=== PATIENT | female | born 1955 | race Caucasian/White ===

== ENCOUNTER → 2016-12-29 | Outpatient (CLI) | payer OTHER ==
[~2016-12-29] MED LIST: CETI10TA84 PO; CLOB-65 TD; FLUT0.0529 NAE; MONT1TAB5 PO; SERT25TA PO; THYR180T PO; WARF5TAB90 PO
[2016-12-29 10:05] LABS: CHOLESTEROL/HDL RATIO 3.5; THYROID STIMULATING HORMONE 1.18 uIu/ml (0.300-4.500)
== END | disposition home or self-care (01) ==
LOC: C.LAB1850 07:59
PROVIDERS: ATTEND Internal Medicine
DX: E78.5 Hyperlipidemia, unspecified (principal); E03.9 Hypothyroidism, unspecified

== ENCOUNTER → 2017-04-15 | Outpatient (CLI) | payer OTHER ==
--- NOTE | 2017-04-15 09:46 | DIAGNOSTIC IMAGING REPORT ---
LUMBAR SPINE W/O CONTRAST CLINICAL HISTORY: 62 years-old Female presenting with LUMBAR RADICULOPATHY. TECHNIQUE: Multisequence, multiplanar MR imaging of the lumbar spine was performed without the use of intravenous contrast. IV contrast: None. COMPARISON: Correlation made to CT of the abdomen and pelvis from 03/29/2015. FINDINGS: Vertebral body heights and alignment maintained. 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 A T1 hyperintense and T2 hyperintense focal round lesion is noted at T12 consistent with benign hemangioma. Intervertebral disc height loss with disc desiccation and disc bulges at several levels. Additional degenerative changes further detailed below: T12-L1: Normal. L1-2: Minimal disc bulge. No significant neural foraminal or spinal canal narrowing. L2-3: Mild disc bulge and ligamentum flavum thickening result in minimal effacement of the thecal sac and mild neural foraminal narrowing bilaterally. L3-4: Similar findings of mild disc bulge resulting in minimal effacement of the ventral thecal sac and mild bilateral neural foraminal narrowing. L4-5: Mild disc bulge bulge and facet arthropathy results in mild bilateral neural foraminal narrowing. L5-S1: Normal. Spinal cord remains in good position at the inferior endplate of T12. Cauda equina normal. Paraspinal soft tissues normal. IMPRESSION: Multilevel degenerative changes with mild bilateral neural foraminal narrowing from L2-3 to L4-5 further detailed above. No significant spinal canal narrowing. Electronically signed by: Everardo Lo M.D. 04/15/2017 9:45 AM Dictated Date/Time: 04/15/2017 9:38 AM
== END | disposition home or self-care (01) ==
LOC: C.MRIBC 08:29
PROVIDERS: ATTEND Pain Medicine Interventional Pain Medicine
DX: M51.16 Intervertebral disc disorders with radiculopathy, lumbar region (principal)

== ENCOUNTER → 2017-06-28 | Outpatient (CLI) | payer OTHER ==
[2017-06-28 10:13] LABS: ALT/SGPT 24 U/L (12-78); AST/SGOT 11 U/L (15-37); BLOOD UREA NITROGEN 12 mg/dl (7-18); BUN/CREATININE RATIO 22.1 (10-20); CALCIUM 8.5 mg/dl (8.5-10.1); CARBON DIOXIDE 28 mmol/L (21-32); CHLORIDE 108 mmol/L (98-107); CHOLESTEROL 203 mg/dl (0-200); CREATININE 0.56 mg/dl (0.60-1.20); GLUCOSE 101 mg/dl (70-99); POTASSIUM 4.2 mmol/L (3.5-5.1); SODIUM 141 mmol/L (136-145)
[2017-06-28 10:23] LABS: CHOLESTEROL/HDL RATIO 2.7; HDL CHOLESTEROL 75 mg/dl; LDL CHOLESTEROL CALCULATED 112 mg/dl; TRIGLYCERIDES 80 mg/dl (0-150); VERY LOW DENSITY LIPOPROT CALC 16 mg/dl
== END | disposition home or self-care (01) ==
LOC: C.LAB1850 08:20
PROVIDERS: ATTEND Internal Medicine
DX: E78.5 Hyperlipidemia, unspecified (principal); E03.9 Hypothyroidism, unspecified; M54.9 Dorsalgia, unspecified

== ENCOUNTER → 2017-09-22 | Outpatient (CLI) | payer OTHER ==
[2017-09-22 19:33] LABS: BLOOD UREA NITROGEN 18 mg/dl (7-18); CREATININE 0.72 mg/dl (0.60-1.20)
== END | disposition home or self-care (01) ==
LOC: C.LAB1850 15:46
PROVIDERS: ATTEND Internal Medicine
DX: M70.61 Trochanteric bursitis, right hip (principal); E06.3 Autoimmune thyroiditis

== ENCOUNTER → 2017-11-22 | Outpatient (CLI) | payer OTHER | END | disposition home or self-care (01) | LOC: C.LAB1850 12:30 | PROVIDERS: ATTEND Internal Medicine | DX: E06.3 Autoimmune thyroiditis (principal) ==

== ENCOUNTER → 2017-12-14 | Outpatient (CLI) | payer OTHER | END | disposition home or self-care (01) | LOC: C.LABSPEC 12:55 | PROVIDERS: ATTEND Physician Assistant | DX: N39.0 Urinary tract infection, site not specified (principal) ==

== ENCOUNTER → 2018-01-16 | Outpatient (CLI) | payer OTHER | END | disposition home or self-care (01) | LOC: C.LAB1850 14:21 | PROVIDERS: ATTEND Internal Medicine | DX: E06.3 Autoimmune thyroiditis (principal) ==